=== PATIENT | female | born 1940 | race Caucasian/White ===

== ENCOUNTER → 2018-05-19 | Day surgery (SDC) | payer OTHER ==
[2018-05-16 14:46] LABS: Basophils # (auto) 0.1 uL; Eosinophils # (auto) 0.2 uL; Eosinophils % (auto) 2.8 % (0.0-7.0); Hemoglobin 13.5 g/dL (12.2-16.2); Lymphocytes % (auto) 30.6 % (10.0-50.0); Mean Corpuscular Hemoglobin 28.2 pg (28.0-32.0); Mean Corpuscular Hgb Conc. 32.3 g/dL (32.0-36.0); Mean Corpuscular Volume 87.5 fL (80.0-100.0); Monocytes # (auto) 0.6 uL; Monocytes % (auto) 8.6 % (0.0-12.0); Neutrophils # (auto) 3.8 uL; Platelet Count (auto) 310 10^3/uL (140-450); Red Cell Distribution Width 15.2 % (11.8-14.3); White Blood Cell 6.6 10^3/uL (4.4-10.8)
[2018-05-16 14:52] LABS: Urine Bacteria NONE SEEN /hpf (None Seen); Urine Blood Negative /uL (Negative); Urine WBC 1 /hpf (0 - 5)
[2018-05-16 15:00] LABS: INR 0.94 (0.9-1.15); Partial Thromboplastin Time 26.8 sec (23.78-33.04); Prothrombin Time 10.1 sec (9.27-12.13)
[2018-05-16 15:54] LABS: Albumin 3.9 g/dL (3.4-5.0); Calcium 8.8 mg/dL (8.5-10.1); Potassium 4.1 mmol/L (3.5-5.1)
[2018-05-16 16:03] LABS: Bilirubin, Total 0.3 mg/dL (0.2-1.0)
[~2018-05-19] VITALS: Ht 170.2 cm; Wt 72.6 kg
[~2018-05-19] MED LIST: BUPIVACAINE W/ EPINEPH 0.25% INJ 50ML MDV ONE; CIPROFLOXACIN 400MG/200ML 200 ML IV ONE; CONJ ESTROGENS 0.625MG/GM VAG CRM 30GM PV ONE; DEXAMETHASONE SOD PHOS 10MG/1ML VIAL INJ ONE; HYDROmorphone HCL 2 MG/ML VL IV PRN; KETOROLAC TROMETH 30 MG/ML 1ML VIAL IV ONE; LIDOCAINE HCL 2% TOP JELLY 5ML TOP ONE; LIDOCAINE W/ EPINEPHRINE 1 % INJ 30ML ONE; MEPERIDINE HCL (50 MG/ML) 1 ML VIAL ONE; METOCLOPRAMIDE HCL 5MG/ml INJ 2ml VIAL IV ONE; MIDAZOLAM HCL 1MG/1ML-2 ML VIAL ONE; ONDANSETRON HCL 4 MG/2 ML VIAL ONE; PROPOFOL 10 MG/ML 20 ML IV ONE; SODIUM CHLORIDE LOCK 10 ML ONE; ceFAZolin 1GM VL ONE; fentaNYL CITRATE 100 MCG/2 ML VL ONE
[2018-05-19 16:33] VITALS: BP 116/76
== END | disposition home or self-care (01) ==
LOC: SUR 09:25
PROVIDERS: ATTEND Urology
DX: N81.6 Rectocele (principal); N34.3 Urethral syndrome, unspecified; J45.909 Unspecified asthma, uncomplicated; E66.9 Obesity, unspecified; I10 Essential (primary) hypertension; J44.9 Chronic obstructive pulmonary disease, unspecified; K21.9 Gastro-esophageal reflux disease without esophagitis; I20.8 Other forms of angina pectoris; Z88.1 Allergy status to other antibiotic agents; Z87.442 Personal history of urinary calculi; Z95.1 Presence of aortocoronary bypass graft; Z98.84 Bariatric surgery status; Z98.890 Other specified postprocedural states; Z86.73 Personal history of transient ischemic attack (TIA), and cerebral infarction without residual deficits
CPT/HCPCS: 36415; 45560; 52281; 80053; 81001; 85025; 85610; 85730; 87086; 88305; J0690; J0744; J1100; J2001; J2175; J2250; J2405; J2704; J3010